=== PATIENT | female | born 1980 | race Caucasian/White ===

== ENCOUNTER → 2021-02-09 13:40 | Outpatient (CLI) | payer BC, SELFPAY ==
[2021-02-09] MEDS: COVID-19 VACC #1, MRNA(MOD) 100 MCG/0.5 ML VIAL IM (13:49)
== END ==
PROVIDERS: Visit Provider Internal Medicine
DX: Z23 Encounter for immunization (principal)
CPT/HCPCS: 0011A; 91301

== ENCOUNTER → 2021-03-08 14:00 | Outpatient (CLI) | payer BC, SELFPAY ==
--- NOTE | 2021-03-08 14:07 | DI.RAD.S_ITS ---
PROCEDURE: XR KNEE LT 3V INDICATIONS: Pain left knee TECHNIQUE: 3 views of the knee were acquired. COMPARISON: None. FINDINGS: Bones: No fractures or dislocations. No suspicious bony lesions. Mild tricompartmental knee joint degeneration. There is lateral tilt of patella. Tibial tubercle is irregular. Soft tissues: Question small joint effusion. No suspicious soft tissue calcifications. IMPRESSION: 1. Mild osteoarthritis. 2. Lateral tilt of patella. 3. Irregularity of tibial tubercle. This finding may be related to Joice-Schlatter disease. 4. Possible small knee joint effusion. Dictated by: Sofía Simmons M.D. on 03/08/2021 at 17:21 Approved by: Sofía Simmons M.D. on 03/08/2021 at 17:22
--- NOTE | 2021-03-08 14:07 | DI.RAD.S_ITS ---
PROCEDURE: XR ANKLE RT MIN 3V INDICATIONS: Right ankle swelling TECHNIQUE: 3 views of the ankle were acquired. COMPARISON: None. FINDINGS: Bones: No fractures or dislocations. Ankle mortise is normally aligned. No suspicious bony lesions. Retro calcaneal and plantar calcaneal enthesophytes. Soft tissues: No tibiotalar joint effusion. Achilles tendon appears normal. IMPRESSION: Calcaneal enthesopathy; otherwise no definite radiographic abnormality. If pain persists with conservative management, consider cross sectional imaging such as CT or MRI for further assessment. Dictated by: Amando Rehman [facility] Interpreted: Marlin Chang MD on 03/08/2021 at 15:26 Approved by: Marlin Chang MD, PhD on 03/08/2021 at 17:53
== END ==
PROVIDERS: PCP Registered Nurse; Referring Provider Registered Nurse; Visit Provider Registered Nurse
DX: M25.471 Effusion, right ankle (principal); M25.562 Pain in left knee
CPT/HCPCS: 73562; 73610

== ENCOUNTER → 2021-03-09 13:33 | Outpatient (CLI) | payer BC, SELFPAY ==
[2021-03-09] MEDS: COVID-19 VACC #2, MRNA(MOD) 100 MCG/0.5 ML VIAL IM (13:41)
== END ==
PROVIDERS: PCP Registered Nurse; Visit Provider Internal Medicine
DX: Z23 Encounter for immunization (principal)
CPT/HCPCS: 0012A; 91301